=== PATIENT | male | born 1995 | race Caucasian/White ===

== ENCOUNTER 2016-12-28 10:33 | Emergency (ER) | payer MEDICAID, OTHER ==
--- NOTE | 2016-12-28 11:14 | EDM.PDOC ---
ED HPI GENERAL MEDICAL PROBLEM - General Chief Complaint: Gastrointestinal Problem Stated Complaint: Rectal bleeding Time Seen by Provider: 12/28/16 11:05 Source of Information: Reports: Patient, RN Notes Reviewed History Limitations: Reports: No Limitations - History of Present Illness INITIAL COMMENTS - FREE TEXT/NARRATIVE: 21 year old male presents to the ED with complaints of 2-3 day history of rectal discomfort. He noticed a bump near his rectum which he feels has grown in size over the past couple days. He says it's uncomfortable to sit down. Today , he had blood with wiping after a bowel movement. This prompted him to come to the ER. He denies filling the toilet with blood. He denies similar symptoms in the past. He denies constipation. He has had some loose stools. No fever but has felt chilled. No abdominal pain, nausea or vomiting reported. - Related Data Allergies Allergy/AdvReac Type Severity Reaction Status Date / Time No Known Allergies Allergy Verified 12/28/16 10:53 Home Meds: Home Meds Fluoxetine. 1 tab PO DAILY 12/28/16 [History] Hydrocortisone Acetate 25 mg RC BID #20 supp.rect 12/28/16 [Rx] Loratadine [Claritin] 10 mg PO DAILY 12/28/16 [History] risperiDONE 1 mg PO DAILY 12/28/16 [History] Past Medical History HEENT History: Reports: Other (See Below) Other HEENT History: right orbital fracture Psychiatric History: Reports: Depression - Past Surgical History HEENT Surgical History: Reports: Myringotomy w Tube(s), Other (See Below) Other HEENT Surgeries/Procedures: tympanoplasty right ear Social & Family History - Tobacco Use Smoking Status *Q: Current Every Day Smoker Years of Tobacco use: 1 Packs/Tins Daily: 0.5 - Caffeine Use Caffeine Use: Reports: Energy Drinks - Recreational Drug Use Recreational Drug Use: No ED ROS GENERAL - Review of Systems Review Of Systems: See Below Constitutional: Reports: Chills. Denies: Fever Respiratory: Reports: No Symptoms Cardiovascular: Reports: No Symptoms GI/Abdominal: Reports: Diarrhea, Other (rectal bleeding). Denies: Abdominal Pain, Nausea, Vomiting ED EXAM, GI/ABD - Physical Exam Exam: See Below Exam Limited By: No Limitations General Appearance: Alert, No Apparent Distress, Anxious, Thin Respiratory/Chest: No Respiratory Distress Cardiovascular: Regular Rate, Rhythm GI/Abdominal Exam: Normal Bowel Sounds, Soft, Non-Tender Rectal (Males) Exam: Hemorrhoids (1 large hemorrhoid at approximately 6-9 o' clock region. Dried blood noted to buttocks. No erythema or evidence of perirectal abscess. ) Course - Vital Signs Last Recorded V/S: Last Vital Signs Temp 98 F 12/28/16 10:49 Pulse 72 12/28/16 10:49 Resp 16 12/28/16 10:49 BP 139/95 H 12/28/16 10:49 Pulse Ox 100 12/28/16 10:49 - Re-Assessments/Exams Free Text/Narrative Re-Assessment/Exam: Will start patient on hydrocortisone suppositories and have him f/u with Dr. Villela. Educated on return precautions and dietary modifications. Departure - Departure Time of Disposition: 11:09 Disposition: Home, Self-Care 01 Condition: Good Clinical Impression: Bleeding external hemorrhoids - Discharge Information Prescriptions: Hydrocortisone Acetate 25 mg RC BID #20 supp.rect Instructions: Hemorrhoids, [id number] Referrals: Marshall Levy MD [Primary Care Provider] - Forms: ED Department Discharge Additional Instructions: Avoid straining or spending excessive time at toilet Avoid constipation. Increase fiber in your diet with fruits, vegetables, and whole grains. Recommend 25-30 grams of fiber per day. Drink at least 80 oz of water per day Hydrocortisone suppositories twice a day You can also use over the counter hemorrhoid wipes and creams. Follow-up with Dr. Villela in 1-2 weeks. Call [phone] to schedule. Return to ER with new or worsening symptoms
== END 2016-12-28 11:30 | disposition home or self-care (01) ==
LOC: JD.ED 10:33
DX: K64.4 Residual hemorrhoidal skin tags (principal); F32.9 Major depressive disorder, single episode, unspecified; F17.210 Nicotine dependence, cigarettes, uncomplicated; Z79.899 Other long term (current) drug therapy
CPT/HCPCS: 99283

== ENCOUNTER 2025-02-05 10:34 | Emergency (ER) | payer BC, OTHER ==
[2025-02-05] MEDS: Ketorolac 30 MG/ML SDV IM ONE (12:10)
== END 2025-02-05 13:00 | disposition home or self-care (01) ==
LOC: JD.ED 10:34
DX: M54.50 Low back pain, unspecified (principal); Z79.899 Other long term (current) drug therapy
CPT/HCPCS: 72100; 96372; 99283; A9270; J1885